=== PATIENT | male | born 1995 | race Caucasian/White ===

== ENCOUNTER 2016-11-11 12:51 | Emergency (ER) | payer OTHER ==
[~2016-11-11] VITALS: Ht 170.2 cm; Wt 63.5 kg
[2016-11-11] MEDS ORDERED: KETOROLAC 30 MG/ML VIAL (J1885) IV ONE (15:00)
--- NOTE | 2016-11-11 15:21 | REP ---
Chest two views HISTORY: Epigastric pain Comparison: None The lungs are clear. The heart is normal in size. The pulmonary vasculature is normal in appearance. The bony structure is intact. IMPRESSION: No acute disease. Signed by Demarcus Leonard MD 11/11/2016 03:13 P
[2016-11-11 16:11] LABS: BASO % 0.3 % (0.0-1.0); EOS # 0.2 K/mm3 (0.0-0.50); EOS % 2.7 % (0.0-3.0); LARGE UNSTAINED CELL # 0.1 K/mm3 (0.0-0.4); LARGE UNSTAINED CELL % 1.7 % (0.0-4.0); LYMPH # 2.3 K/mm3 (1.5-6.5); LYMPH % 25.1 % (24.0-44.0); MEAN CORPUSCULAR HEMOGLOBIN 29.3 pg (27.0-33.0); MEAN CORPUSCULAR HGB CONC 33.8 g/dl (32.0-36.5); MEAN CORPUSCULAR VOLUME 86.7 fl (80.0-96.0); MONO # 0.6 K/mm3 (0.0-0.8); MONO % 7.2 % (0.0-5.0); NEUTROPHILS # 5.3 K/mm3 (1.8-7.7); NEUTROPHILS % 63.1 % (36.0-66.0); PLATELET COUNT, AUTOMATED 266 k/mm3 (150-450); RED CELL DISTRIBUTION WIDTH 11.8 % (11.5-14.5); WHITE BLOOD COUNT 8.4 K/mm3 (4.0-10.0)
[2016-11-11 16:30] LABS: ALBUMIN 4.1 GM/DL (3.2-5.2); ALBUMIN/GLOBULIN RATIO 1.08 (1.00-1.93); ALKALINE PHOSPHATASE 93 U/L (45-117); ALT/SGPT 35 U/L (12-78); AMYLASE 75 U/L (25-115); ANION GAP 5 MEQ/L (8-16); AST/SGOT 26 U/L (15-37); BILIRUBIN,DIRECT 0.2 MG/DL (0.0-0.2); BILIRUBIN,TOTAL 0.5 MG/DL (0.2-1.0); BLOOD UREA NITROGEN 15 MG/DL (7-18); CALCIUM LEVEL 9.2 MG/DL (8.5-10.1); CARBON DIOXIDE LEVEL 30 MEQ/L (21-32); CHLORIDE LEVEL 101 MEQ/L (98-107); CREATININE FOR GFR 1.17 MG/DL (0.70-1.30); GLUCOSE, FASTING 88 MG/DL (70-105); POTASSIUM SERUM 4.5 MEQ/L (3.5-5.1); SODIUM LEVEL 136 MEQ/L (136-145); TOTAL PROTEIN 7.9 GM/DL (6.4-8.2)
[2016-11-11] MEDS ORDERED: ZOFR4TAB3 PO (16:45)
[2016-11-11 16:57] VITALS: BP 123/69
--- NOTE | 2016-11-12 07:03 | REP ---
ABDOMEN ULTRASOUND: HISTORY: Epigastric pain. There are no filling defects in the gallbladder. The common bile duct measures 2.2 mm. The liver is normal in echogenicity. The pancreas is not well seen. The kidneys are normal in echogenicity. The right kidney measures 4.3 cm in transverse by 3.7 cm in AP by 10.6 cm in cephalocaudal dimensions. The left kidney measures 4.1 cm in transverse by 4.4 cm in AP by 10.5 cm in cephalocaudal dimensions. There is no hydronephrosis or mass. There is pyelectasis versus an extrarenal pelvis on the right. The spleen measures 9.3 cm in length. IMPRESSION: Normal abdomen ultrasound. Signed by Demarcus Leonard MD 11/12/2016 08:25 A
== END 2016-11-11 17:01 | disposition home or self-care (01) ==
LOC: M ED 14:08
DX: R10.13 Epigastric pain (principal)
CPT/HCPCS: 71020; 76700; 80048; 80076; 82150; 83690; 85025; 86140; 96374; 99282; J1885